=== PATIENT | male | born 1965 | race Hispanic/Latino ===

== ENCOUNTER 2018-10-16 16:53 | Emergency (ER) | payer MEDICARE ==
[2018-10-16 19:05] LABS: BASOPHILS % (AUTO) 0.3 % (0.0-5.0); EOSINOPHILS % (AUTO) 0.1 % (0.0-8.0); HEMATOCRIT 38.5 % (42-54); LYMPHOCYTES % (AUTO) 3.4 % (21.0-51.0); MEAN CORPUSCULAR HEMOGLOBIN 30.5 pg (27.0-33.0); MEAN CORPUSCULAR HGB CONC 32.9 g/dL (32.0-36.0); MEAN CORPUSCULAR VOLUME 92.8 fL (79-99); MONOCYTES % (AUTO) 3.8 % (3.0-13.0); NEUTROPHILS % (AUTO) 92.4 % (40.0-77.0); PLATELET COUNT (AUTO) 260 K/uL (130-400); RED BLOOD CELL COUNT(AUTO) 4.15 MIL/uL (4.50-6.20); RED CELL DISTRIBUTION WIDTH 14.2 % (11.0-15.5); WHITE BLOOD COUNT (AUTO) 13.1 K/uL (4.8-10.8)
[2018-10-16 19:09] LABS: INR 0.89 (0.85-1.15); PARTIAL THROMBOPLASTIN TIME 28.8 SEC (26.3-35.5); PROTHROMBIN TIME 9.4 SEC (9.6-11.6)
[2018-10-16 19:15] LABS: ALBUMIN 3.3 g/dL (3.5-5.0); BILIRUBIN,TOTAL 0.6 mg/dL (0.2-1.0); POTASSIUM 4.8 mmol/L (3.5-5.1); TOTAL PROTEIN, SERUM 7.9 g/dL (6.0-8.3)
[2018-10-16] MEDS ORDERED: CLONIDINE HCL 0.1 MG TABLET ONE (19:16)
[2018-10-16 19:17] LABS: CREATININE 9.5 mg/dL (0.5-1.5)
== END 2018-10-17 00:11 | disposition home or self-care (01) ==
LOC: EDH 16:53
DX: I12.0 Hypertensive chronic kidney disease with stage 5 chronic kidney disease or end stage renal disease (principal); E11.22 Type 2 diabetes mellitus with diabetic chronic kidney disease; N18.6 End stage renal disease; Z79.4 Long term (current) use of insulin
CPT/HCPCS: 36415; 80053; 82550; 82948; 84484; 85025; 85610; 85730

== ENCOUNTER 2020-05-23 15:11 | Inpatient (IN) | payer MEDICARE ==
[~2020-05-23] VITALS: Ht 157.5 cm; Wt 50.5 kg
[~2020-05-23 15:11] MED LIST: ACET-2247 PO; ALLO100T PO; AMLO-258 PO; ATOR10 PO; DILT120T PO; ESCI20TA36 PO; GABA-529 PO; HYDR-3422 PO; LISI-613 PO; METO25TA6 PO; METR500T PO; MIDO10TA PO; MIRT15TA6 PO; MULT-685 PO; OMEP20CA12 PO; PANT40TA PO; SEVE800T27 PO; VANC50SO3 PO
[2020-05-23 16:02] LABS: BASOPHILS % (AUTO) 1.4 % (0.0-5.0); EOSINOPHILS % (AUTO) 0.9 % (0.0-8.0); HEMATOCRIT 35.3 % (42-54); LYMPHOCYTES % (AUTO) 11.1 % (21.0-51.0); MEAN CORPUSCULAR HEMOGLOBIN 29.3 pg (27.0-33.0); MEAN CORPUSCULAR HGB CONC 29.5 g/dL (32.0-36.0); MEAN CORPUSCULAR VOLUME 99.4 fL (79-99); MONOCYTES % (AUTO) 5.5 % (3.0-13.0); NEUTROPHILS % (AUTO) 80.6 % (40.0-77.0); PLATELET COUNT (AUTO) 250 K/uL (130-400); RED BLOOD CELL COUNT(AUTO) 3.55 MIL/uL (4.50-6.20); RED CELL DISTRIBUTION WIDTH 20.9 % (11.0-15.5); WHITE BLOOD COUNT (AUTO) 13.1 K/uL (4.8-10.8)
[2020-05-23 16:11] LABS: INR 1.06 (0.85-1.15); PARTIAL THROMBOPLASTIN TIME 33.6 SEC (26.3-35.5); POTASSIUM 4.6 mmol/L (3.5-5.1); PROTHROMBIN TIME 11.4 SEC (9.6-11.6)
[2020-05-23 16:15] LABS: ALBUMIN 1.9 g/dL (3.5-5.0); BILIRUBIN,TOTAL 0.5 mg/dL (0.2-1.0); TOTAL PROTEIN, SERUM 8.8 g/dL (6.0-8.3)
[2020-05-23 16:19] LABS: CREATININE 7.9 mg/dL (0.5-1.5)
[2020-05-23] MEDS ORDERED: MICONAZOLE NITRATE TP SCH (17:00)
[2020-05-23] MEDS ORDERED: COMPOUND PO MISCELLANEOUS 1 EACH MISC MISC PRN (17:30)
[2020-05-23] MEDS ORDERED: VANCOMYCIN 250MG/5ML ORAL SOLUTION 40ML PO ONE ×2 (17:30)
[2020-05-23] MEDS ORDERED: ONDANSETRON HCL 4 MG/2 ML VIAL IV PRN (21:00)
[2020-05-23] MEDS ORDERED: ACETAMINOPHEN 325 MG TAB PO PRN (21:00)
[2020-05-23] MEDS ORDERED: PHARMACY COMMUNICATION MISC SCH (21:15)
[2020-05-23] MEDS ORDERED: PANTOPRAZOLE 40 MG/VIAL ONE (23:47)
[2020-05-24] MEDS ORDERED: ACETAMINOPHEN 325 MG TAB ONE (00:09)
[2020-05-24] MEDS ORDERED: ALBUMIN (HUMAN) 25% 50 ML IV PRN (00:15)
[2020-05-24] MEDS ORDERED: TEMAZEPAM 7.5 MG CAPSULE PO ONE (00:29)
[2020-05-24] MEDS ORDERED: TRAZODONE HCL 50 MG TAB ONE (00:47)
[2020-05-24] MEDS: VANCOMYCIN 250MG/5ML ORAL SOLUTION 40ML PO SCH ×10 (06:00→23:35)
[2020-05-24 06:30] VITALS: BP 139/39
[2020-05-24 07:18] LABS: BASOPHILS % (AUTO) 1.4 % (0.0-5.0); EOSINOPHILS % (AUTO) 1.3 % (0.0-8.0); HEMATOCRIT 29.4 % (42-54); LYMPHOCYTES % (AUTO) 11.8 % (21.0-51.0); MEAN CORPUSCULAR HEMOGLOBIN 29.1 pg (27.0-33.0); MEAN CORPUSCULAR HGB CONC 29.3 g/dL (32.0-36.0); MEAN CORPUSCULAR VOLUME 99.3 fL (79-99); MONOCYTES % (AUTO) 7.4 % (3.0-13.0); NEUTROPHILS % (AUTO) 77.8 % (40.0-77.0); PLATELET COUNT (AUTO) 245 K/uL (130-400); RED BLOOD CELL COUNT(AUTO) 2.96 MIL/uL (4.50-6.20); RED CELL DISTRIBUTION WIDTH 20.3 % (11.0-15.5); WHITE BLOOD COUNT (AUTO) 13.2 K/uL (4.8-10.8)
[2020-05-24 07:45] LABS: ALBUMIN 1.7 g/dL (3.5-5.0); BILIRUBIN,TOTAL 0.5 mg/dL (0.2-1.0); POTASSIUM 4.8 mmol/L (3.5-5.1); THYROID STIMULATING HORMONE 6.38 uIU/mL (0.36-3.74); TOTAL PROTEIN, SERUM 7.6 g/dL (6.0-8.3)
[2020-05-24 08:02] LABS: CREATININE 8.2 mg/dL (0.5-1.5)
[2020-05-24 08:07] VITALS: BP 101/39
--- NOTE | 2020-05-24 12:00 | NUR ---
1140 BPCI Letter given to patient.
[2020-05-24 12:06] VITALS: BP 115/55
--- NOTE | 2020-05-24 12:15 | NUR ---
IA NOT DONE. Contacts on file not answering.
[2020-05-24] MEDS: ALPRAZOLAM 0.25 MG TABLET PO PRN ×2 (12:20→19:52)
[2020-05-24] MEDS: FAMOTIDINE/PF 20 MG/2 ML VIAL IV SCH (13:13)
[2020-05-24] MEDS: METRONIDAZOLE 500 MG TABLET PO SCH ×2 (13:13→19:51)
[2020-05-24] MEDS: ACETAMINOPHEN 325 MG TAB PO PRN ×2 (14:05→18:32)
--- NOTE | 2020-05-24 16:17 | NUR ---
RD NOTIFICATION Pt admitted with severe protein-calorie malnutrition. One missed hemodialysis appointment. Pt height discrepancy entered in EMR;Previous visit 62". Pt with moderate to severe fat/muscle loss. FTT. Monitored labs: BUN 45, Cr 8.2, GFR 7, BG 65, Alb 1.7. Pending Nephrology evaluation. Pt positive for C. Diff. with diarrhea X2 weeks. Protein supplementation contraindicated with ESRD, hemodialysis not in place as of yet. Pt with Poor PO intake, possibly related to pain/discomfort. Recommend Ensure Clear Liquids TID with meals Recommend advance diet as tolerated to [facility] D[facility] Diet Order, Recommend [facility] Non-Dialysis if Pt does not qualify for hemodialysis treatment. Recommend protein supplementation pending Hemodialysis/Nephrology evaluation RD to continue to monitor. Please notify as additional nutrition concerns arise. Thank you. Addendum: 05/24/20 at [address] RD Amended: Links added.
[2020-05-24 16:41] VITALS: BP 102/75
[2020-05-24 19:00] VITALS: BP 102/51
[2020-05-24] MEDS: ESCITALOPRAM 20MG PO SCH (19:49)
[2020-05-24] MEDS: MIRTAZAPINE 15 MG TABLET PO SCH (19:51)
[2020-05-24] MEDS: ATORVASTATIN CALCIUM 10 MG TABLET PO SCH (19:51)
[2020-05-24] MEDS: SEVELAMER HCL 800 MG TABLET PO SCH (19:51)
[2020-05-24] MEDS: METOPROLOL TARTRATE 25 MG TAB PO SCH (19:53)
[2020-05-24] MEDS ORDERED: NON-FORMULARY MEDICATION 1 EACH (Escitalopram Oxalate 20 MG) PO SCH (21:00)
[2020-05-25 04:06] VITALS: BP 163/67
[2020-05-25 05:35] LABS: BASOPHILS % (AUTO) 1.5 % (0.0-5.0); EOSINOPHILS % (AUTO) 2.1 % (0.0-8.0); HEMATOCRIT 34.4 % (42-54); LYMPHOCYTES % (AUTO) 9.5 % (21.0-51.0); MEAN CORPUSCULAR HEMOGLOBIN 28.9 pg (27.0-33.0); MEAN CORPUSCULAR HGB CONC 29.4 g/dL (32.0-36.0); MEAN CORPUSCULAR VOLUME 98.6 fL (79-99); MONOCYTES % (AUTO) 7.9 % (3.0-13.0); NEUTROPHILS % (AUTO) 78.5 % (40.0-77.0); PLATELET COUNT (AUTO) 272 K/uL (130-400); RED BLOOD CELL COUNT(AUTO) 3.49 MIL/uL (4.50-6.20); RED CELL DISTRIBUTION WIDTH 20.2 % (11.0-15.5); WHITE BLOOD COUNT (AUTO) 14.2 K/uL (4.8-10.8)
[2020-05-25 05:46] LABS: CREATININE 4.7 mg/dL (0.5-1.5); PHOSPHORUS 5.8 mg/dL (2.5-4.9); POTASSIUM 4.1 mmol/L (3.5-5.1)
[2020-05-25] MEDS: VANCOMYCIN 250MG/5ML ORAL SOLUTION 40ML PO SCH ×6 (06:14→18:27)
[2020-05-25 08:42] VITALS: BP 132/54
--- NOTE | 2020-05-25 08:50 | NUR ---
RAND Visit-Attempt at interview with pt., however, pt. stated that he did not want to speak with this worker at this time. SW attempted to contact pt's spouse at [phone] and [phone]; unsuccessful at contacting. Call made to APS and Guadalupe Mcghee [phone], has just been assigned case and reported that she would f/u with son.
[2020-05-25] MEDS ORDERED: MULTIVITAMIN WITH MINERALS PO SCH (09:00)
[2020-05-25] MEDS ORDERED: NON-FORMULARY MEDICATION 1 EACH (Amlodipine Besylate 10 MG) PO SCH (09:00)
[2020-05-25] MEDS ORDERED: NON-FORMULARY MEDICATION 1 EACH (Diltiazem HCl 120 MG) PO SCH (09:00)
[2020-05-25] MEDS: PANTOPRAZOLE SODIUM 40 MG TABLET.DR PO SCH (09:47)
[2020-05-25] MEDS: FAMOTIDINE/PF 20 MG/2 ML VIAL IV SCH (09:47)
[2020-05-25] MEDS: LISINOPRIL 20 MG TABLET PO SCH (09:47)
[2020-05-25] MEDS: METRONIDAZOLE 500 MG TABLET PO SCH ×3 (09:47→23:03)
[2020-05-25] MEDS: MULTIVITAMIN TABLET PO SCH (09:48)
[2020-05-25] MEDS: DILTIAZEM HCL 120 MG CAP.SR.24H PO SCH (09:48)
[2020-05-25] MEDS: METOPROLOL TARTRATE 25 MG TAB PO SCH ×2 (09:48→23:04)
[2020-05-25] MEDS: AMLODIPINE BESYLATE 5 MG TAB PO SCH (09:50)
[2020-05-25] MEDS: GABAPENTIN 100 MG CAPSULE PO SCH (09:50)
[2020-05-25] MEDS: ALLOPURINOL 100 MG TABLET PO SCH (09:50)
[2020-05-25 13:55] VITALS: BP 132/54
--- NOTE | 2020-05-25 14:15 | NUR ---
IA NOT DONE. Phone numbers listed not answering.
[2020-05-25 16:00] VITALS: BP 129/63
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
--- NOTE | 2020-05-25 16:53 | NUR ---
RD UPDATE Pt diet advanced to [facility] Dialysis Diet order. Pt requests to bring food. RD explain to dietary restrictions. Pt agrees to encourage Pt to drink Ensure Clear supplementation, although supplement possible modification due to diet advancement. Pt states Pt requests to go home with hospice, home health, and bed. RD notified RN. Recommend Nepro Supplementation RD to continue to monitor. Please notify as additional nutrition concerns arise. Thank you.
--- NOTE | 2020-05-25 17:36 | NUR ---
Pt. resides at home w/spouse. Son has recently relocated to assist. Dialysis US [facility] TTS O2/[facility], wheelchair Pt. wants to return home, states already has been at [facility] and [facility] and he will speak with physician about his options/HH/PT Spouse/Mary Kay to provide transportation home [phone] BOBBY/Guadalupe Mcghee [phone] was assigned but has not yet made contact with pt/family Read SW notes for additional info Addendum: 05/25/20 at 1742 by CORY LUCERO Amended: Links added.
[2020-05-25 20:00] VITALS: BP 108/48
[2020-05-25] MEDS: ESCITALOPRAM 20MG PO SCH (21:00)
[2020-05-25] MEDS: MIRTAZAPINE 15 MG TABLET PO SCH (23:03)
[2020-05-25] MEDS: SEVELAMER HCL 800 MG TABLET PO SCH (23:03)
[2020-05-25] MEDS: ATORVASTATIN CALCIUM 10 MG TABLET PO SCH (23:04)
[2020-05-25] MEDS: ACETAMINOPHEN 325 MG TAB PO PRN (23:13)
[2020-05-25] MEDS: ALPRAZOLAM 0.25 MG TABLET PO PRN (23:14)
[2020-05-26] VITALS: BP 118/58
[2020-05-26] MEDS: VANCOMYCIN 250MG/5ML ORAL SOLUTION 40ML PO SCH ×8 (02:15→18:00)
[2020-05-26 04:00] VITALS: BP 144/60
[2020-05-26 06:07] LABS: BASOPHILS % (AUTO) 1.2 % (0.0-5.0); EOSINOPHILS % (AUTO) 2.1 % (0.0-8.0); LYMPHOCYTES % (AUTO) 14.1 % (21.0-51.0); MEAN CORPUSCULAR HGB CONC 29.7 g/dL (32.0-36.0); MEAN CORPUSCULAR VOLUME 97.6 fL (79-99); MONOCYTES % (AUTO) 8.5 % (3.0-13.0); NEUTROPHILS % (AUTO) 73.6 % (40.0-77.0); PLATELET COUNT (AUTO) 263 K/uL (130-400); RED BLOOD CELL COUNT(AUTO) 3.79 MIL/uL (4.50-6.20); RED CELL DISTRIBUTION WIDTH 19.8 % (11.0-15.5)
[2020-05-26 09:13] VITALS: BP 131/58
[2020-05-26 12:00] VITALS: BP 133/72
[2020-05-26] MEDS: MULTIVITAMIN TABLET PO SCH (12:09)
[2020-05-26] MEDS: GABAPENTIN 100 MG CAPSULE PO SCH (12:09)
[2020-05-26] MEDS: METOPROLOL TARTRATE 25 MG TAB PO SCH (12:10)
[2020-05-26] MEDS: LISINOPRIL 20 MG TABLET PO SCH (12:10)
[2020-05-26] MEDS: DILTIAZEM HCL 120 MG CAP.SR.24H PO SCH (12:10)
[2020-05-26] MEDS: METRONIDAZOLE 500 MG TABLET PO SCH ×2 (12:10→15:45)
[2020-05-26] MEDS: ALLOPURINOL 100 MG TABLET PO SCH (12:11)
[2020-05-26] MEDS: AMLODIPINE BESYLATE 5 MG TAB PO SCH (12:11)
[2020-05-26] MEDS: PANTOPRAZOLE SODIUM 40 MG TABLET.DR PO SCH (12:11)
[2020-05-26] MEDS: FAMOTIDINE/PF 20 MG/2 ML VIAL IV SCH (12:12)
[2020-05-26] MEDS: ALPRAZOLAM 0.25 MG TABLET PO PRN (12:22)
[2020-05-26] MEDS ORDERED: VANC125C6 PO (14:27)
[2020-05-26] MEDS ORDERED: METR500T PO (14:27)
[2020-05-26] MEDS ORDERED: LEVOFLOXACIN 500 MG TABLET PO SCH (15:00)
[2020-05-26 16:00] VITALS: BP 132/80
--- NOTE | 2020-05-28 09:01 | NUR ---
APS-Call from RAND Borden updated her on pt's d/c home on 05/26 with instructions to f/u with primary and home with antibiotics X14d. APS/Guadalupe to follow up with pt. at home.
== END 2020-05-26 19:30 | disposition home or self-care (01) | DRG 371 ==
LOC: EDH 15:11 → EDHIP 20:59 → 4BH 05-24 05:49 → EDHIP 05-25 18:36
PROVIDERS: ADMIT Internal Medicine; ATTEND Internal Medicine
PROC: 5A1D70Z Performance of Urinary Filtration, Intermittent, Less than 6 Hours Per Day (ICD-10-PCS; 2020-05-24)
PROC: 5A1D70Z Performance of Urinary Filtration, Intermittent, Less than 6 Hours Per Day (ICD-10-PCS; principal; 2020-05-26)
DX: A04.72 Enterocolitis due to Clostridium difficile, not specified as recurrent (principal); N18.6 End stage renal disease; E43 Unspecified severe protein-calorie malnutrition; I12.0 Hypertensive chronic kidney disease with stage 5 chronic kidney disease or end stage renal disease; D64.9 Anemia, unspecified; E11.22 Type 2 diabetes mellitus with diabetic chronic kidney disease; E78.5 Hyperlipidemia, unspecified; E86.0 Dehydration; E86.1 Hypovolemia; Z99.2 Dependence on renal dialysis; Z87.891 Personal history of nicotine dependence; Z79.899 Other long term (current) drug therapy
CPT/HCPCS: 36415; 71045; 80048; 80053; 82150; 82270; 82550; 82948; 83605; 83630; 83690; 84100; 84145; 84443; 84484; 85025; 85610; 85730; 87040; 87046; 87324; 90935; 93005; C9113; G0378; J3370; J3490

== ENCOUNTER 2020-06-15 18:10 | Observation (INO) | payer MEDICARE ==
[~2020-06-15] VITALS: Ht 162.6 cm; Wt 45.9 kg
[~2020-06-15 18:10] MED LIST changes: -ACET-2247 PO; -MIDO10TA PO; -OMEP20CA12 PO; -PANT40TA PO; +VANC125C6 PO; -VANC50SO3 PO
[2020-06-15 18:51] LABS: BASOPHILS % (AUTO) 0.9 % (0.0-5.0); EOSINOPHILS % (AUTO) 0.5 % (0.0-8.0); HEMATOCRIT 34.8 % (42-54); LYMPHOCYTES % (AUTO) 10.3 % (21.0-51.0); MEAN CORPUSCULAR HEMOGLOBIN 29.1 pg (27.0-33.0); MEAN CORPUSCULAR VOLUME 93.8 fL (79-99); NEUTROPHILS % (AUTO) 81.9 % (40.0-77.0); PLATELET COUNT (AUTO) 245 K/uL (130-400); RED BLOOD CELL COUNT(AUTO) 3.71 MIL/uL (4.50-6.20); RED CELL DISTRIBUTION WIDTH 16.8 % (11.0-15.5); WHITE BLOOD COUNT (AUTO) 10.2 K/uL (4.8-10.8)
[2020-06-15 19:00] LABS: INR 1.06 (0.85-1.15); PARTIAL THROMBOPLASTIN TIME 29.5 SEC (26.3-35.5); PROTHROMBIN TIME 11.4 SEC (9.6-11.6)
[2020-06-15 19:04] LABS: CREATININE 3.6 mg/dL (0.5-1.5); POTASSIUM 4.5 mmol/L (3.5-5.1)
[2020-06-15 19:08] LABS: ALBUMIN 1.8 g/dL (3.5-5.0); BILIRUBIN,TOTAL 0.5 mg/dL (0.2-1.0); TOTAL PROTEIN, SERUM 8.5 g/dL (6.0-8.3)
[2020-06-15] MEDS: DEXTROSE 5 % AND 0.9 % NACL 1,000 ML IV SCH (20:30)
[2020-06-15] MEDS: INSULIN R PO SS1 SQ SCH (21:00)
[2020-06-15 21:19] VITALS: BP 110/61
[2020-06-15] MEDS ORDERED: PANT40TA54 PO (22:47)
[2020-06-15] MEDS ORDERED: TRAZ-185 PO (22:47)
[2020-06-15 23:51] VITALS: BP 127/71
[2020-06-16 03:48] VITALS: BP 146/56
[2020-06-16 05:45] LABS: HEMATOCRIT 32.8 % (42-54); MEAN CORPUSCULAR HEMOGLOBIN 28.4 pg (27.0-33.0); MEAN CORPUSCULAR HGB CONC 30.2 g/dL (32.0-36.0); MEAN CORPUSCULAR VOLUME 94.3 fL (79-99); RED BLOOD CELL COUNT(AUTO) 3.48 MIL/uL (4.50-6.20); RED CELL DISTRIBUTION WIDTH 16.7 % (11.0-15.5); WHITE BLOOD COUNT (AUTO) 11.1 K/uL (4.8-10.8)
[2020-06-16 06:08] LABS: CREATININE 4.1 mg/dL (0.5-1.5); MAGNESIUM 2.1 mg/dL (1.80-2.40); POTASSIUM 3.8 mmol/L (3.5-5.1)
[2020-06-16] MEDS: INSULIN R PO SS1 SQ SCH ×3 (06:56→16:30)
[2020-06-16 07:51] VITALS: BP 127/71
[2020-06-16] MEDS ORDERED: DEXTROSE 50%-WATER 50 ML DISP.SYRIN IV PRN (09:15)
[2020-06-16] MEDS ORDERED: GLUCAGON 1MG KIT 1 MG ML IM PRN (09:15)
[2020-06-16] MEDS ORDERED: TRAM50TA4 PO (10:27)
[2020-06-16] MEDS ORDERED: TRAMADOL HCL 50 MG TABLET PO PRN (10:30)
[2020-06-16 11:15] VITALS: BP 151/82
[2020-06-16] MEDS ORDERED: DRONABINOL 2.5 MG CAP ONE (12:09)
[2020-06-16 16:00] VITALS: BP 157/73
--- NOTE | 2020-06-16 16:00 | NUR ---
cm note spoke to pt and states resides at home with spouse, is primarily chairbound, and uses medicaid transport to go to dialysis at [facility]. TTS schedule. uses w/c, no other dme.no provider services.discussed with pt, dr Aragon recommendation for supplemental Nepro can supplements, states that he has tried in the past and does not like them. informed him that [facility] would provide approx 10 cans so he can try them. and he can followup with dr ramirez for further orders for Nepro.also, spoke to pts on phone and states she is in the process of getting a provider to assist already, and does not need [place] agency on [facility] information. and states that she will come and pick him up later today. Addendum: 06/16/20 at 1942 by JAYDE SANTIAGO CM Amended: Links added.
[2020-06-16] MEDS: DEXTROSE 5 % AND 0.9 % NACL 1,000 ML IV SCH (16:30)
[2020-06-16] MEDS ORDERED: DRONABINOL 2.5 MG CAP PO SCH ×2 (21:00)
[2020-06-16] MEDS ORDERED: METOPROLOL TARTRATE 25 MG TAB PO SCH (21:00)
--- NOTE | 2020-06-16 21:00 | NUR ---
DISCHARGE INSTRUCTIONS GIVEN TO PT AND . THEY VERBALIZED AN UNDERSTANDING. REMOVED IV WITH CATH INTACT. NO DISTRESS VISUALIZED AT THIS TIME. ASSISTED FAMILY IN PUTTING PT IN THEIR VEHICLE.
[2020-06-17] MEDS ORDERED: DILTIAZEM HCL 120 MG CAP.SR.24H PO SCH (09:00)
[2020-06-19 06:12] LABS: HEPATITIS Bs ANTIGEN SCREEN P Negative (Negative)
== END 2020-06-16 20:50 | disposition home or self-care (01) ==
LOC: EDH 18:10 → INTOOBSV 19:54 → EDHIP 19:54 → 3DH 20:58
PROVIDERS: ADMIT Internal Medicine Infectious Disease; ATTEND Internal Medicine Infectious Disease
DX: E11.649 Type 2 diabetes mellitus with hypoglycemia without coma (principal); E11.22 Type 2 diabetes mellitus with diabetic chronic kidney disease; I12.0 Hypertensive chronic kidney disease with stage 5 chronic kidney disease or end stage renal disease; N18.6 End stage renal disease; G89.29 Other chronic pain; J43.9 Emphysema, unspecified; D64.9 Anemia, unspecified; E78.5 Hyperlipidemia, unspecified; Z87.891 Personal history of nicotine dependence; Z99.2 Dependence on renal dialysis; Z91.19 Patient's noncompliance with other medical treatment and regimen; Z79.899 Other long term (current) drug therapy
CPT/HCPCS: 36415 ×2; 80048; 80053; 82550; 82948 ×7; 83735; 84484; 85025; 85027; 85610; 85730; 86704; 86706; 87340; 87520; 99284; G0378 ×23; Q0167; 90935